=== PATIENT | male | born 1975 | race Caucasian/White ===

== ENCOUNTER 2023-10-04 18:09 | Emergency (ER) | payer OTHER ==
[2023-10-04 18:17] VITALS: BP 133/75; PULSE 68; RESP 18; TEMP 98.2; BMI 24.9
[2023-10-04] MEDS ORDERED: ACETAMINOPHEN 325 MG TABLET (FP) ONE (20:22)
[2023-10-04] MEDS: ACETAMINOPHEN 500 MG TABLET (FP) PO ONE (20:27)
== END 2023-10-04 20:30 | disposition short-term general hospital (02) ==
LOC: JER 18:09
DX: E11.311 Type 2 diabetes mellitus with unspecified diabetic retinopathy with macular edema (principal); H57.11 Ocular pain, right eye; Z20.822 Contact with and (suspected) exposure to COVID-19
CPT/HCPCS: 0241U-QW; 99285-25